=== PATIENT | male | born 1985 | race Caucasian/White ===

== ENCOUNTER 2016-11-13 00:15 | Emergency (ER) | payer SELFPAY ==
[~2016-11-13] VITALS: Ht 177.8 cm; Wt 62.0 kg
[~2016-11-13 00:15] MED LIST: IBUP800T23 PO
[2016-11-13 00:18] VITALS: BP 136/87; PULSE 79; RESP 20; TEMP 98.1; O2SAT 97
[2016-11-13] MEDS ORDERED: METH40TA PO (00:23)
[2016-11-13] MEDS ORDERED: ANXIETY (00:23)
[2016-11-13 00:35] VITALS: O2SAT 98
[2016-11-13] MEDS ORDERED: SODIUM CHLOR 0.9% 1000 ML INJ 1,000 ML IV ONE (00:45)
[2016-11-13 00:57] LABS: AUTOMATED NEUTROPHIL # 3.4 TH/MM3 (1.8-7.7); BASOPHIL % 0.4 % (0.0-2.0); HEMATOCRIT 36.5 % (39.0-51.0); HEMO FLAGS DIFF FINAL; LYMPH % 35.4 % (9.0-44.0); LYMPHOCYTE # 2.2 TH/MM3 (1.0-4.8); MEAN CELL VOLUME 84.2 FL (80.0-100.0); MEAN CORPUSCULAR HEMOGLOBIN 28.9 PG (27.0-34.0); MEAN CORPUSCULAR HGB CONC 34.3 % (32.0-36.0); MONO % 9.1 % (0.0-8.0); NEUT % 55.1 % (16.0-70.0); PLATELET COUNT 210 TH/MM3 (150-450); RED BLOOD COUNT 4.34 MIL/MM3 (4.50-5.90); RED CELL DISTRIBUTION WIDTH 12.3 % (11.6-17.2); WHITE BLOOD COUNT 6.2 TH/MM3 (4.0-11.0)
[2016-11-13 01:14] LABS: ALT (GPT) 32 U/L (12-78); ANION GAP 8 MEQ/L (5-15); AST (GOT) 19 U/L (15-37); BICARBONATE 28.2 MEQ/L (21.0-32.0); BLOOD UREA NITROGEN 9 MG/DL (7-18); CHLORIDE 103 MEQ/L (98-107); GLOMERULAR FILTRATION RATE 104 ML/MIN (>89); POTASSIUM 3.6 MEQ/L (3.5-5.1); SODIUM (NA) 139 MEQ/L (136-145)
[2016-11-13 01:21] LABS: BLOOD, URINE NEG (NEG); COMMENT (UR) CULT NOT INDICATED; CULTURE IF INDICATED CULT NOT INDICATED; GLUCOSE,URINE NEG (NEG); KETONE, URINE NEG (NEG); MUCUS URINE FEW /lpf (OCC); NITRITE,URINE NEG (NEG); URINE COLOR YELLOW (YELLW/STRAW)
[2016-11-13 01:24] LABS: ALKALINE PHOSPHATASE 55 U/L (45-117); TOTAL BILIRUBIN ADULT 0.3 MG/DL (0.2-1.0)
[2016-11-13 01:26] LABS: AMPHETAMINE, URINE NEG (NEG); BARBITURATES, URINE NEG (NEG); COCAINE, URINE NEG (NEG)
--- NOTE | 2016-11-13 01:26 | RADRPT ---
EXAM DATE/TIME: 11/13/2016 00:49 [facility] COMPARISON: No previous studies available for comparison. INDICATIONS : Chest pain. MEDICAL HISTORY : None. SURGICAL HISTORY : None. ENCOUNTER: Initial ACUITY: 1 day PAIN SCORE: 0/10 LOCATION: Bilateral chest FINDINGS: A single view of the chest demonstrates the lungs to be symmetrically aerated without evidence of mas s, infiltrate or effusion. The cardiomediastinal contours are unremarkable. Osseous structures are intact. CONCLUSION: No acute disease. Oscar Cobos MD on November 13, 2016 at 1:24 Board Certified Radiologist. This report was verified electronically.
[2016-11-13] MEDS ORDERED: VIST25CA PO (01:43)
--- NOTE | 2016-11-13 02:04 | PD ---
HPI Chief Complaint: Anxiety Time Seen by Provider: 00:32 Travel History International Travel<30 days: No Contact w/Intl Traveler<30days: No Traveled to known affect area: No History of Present Illness HPI The patient is a 31 year old male who presents to the [facility] emergency department with a history of anxiety that he reports is been difficult to control over the last 3 days. He reports that he's been checking his blood pressure and it has been elevated. He reports that he feels a sense of doom like he is pointing to . He reports that he has a sensation of heart palpitations and shortness of breath with hyperventilating. The patient reports that he is intermittently been suffering with anxiety since trying to wean himself off of methadone. He reports that he's been on methadone related to a history of opiate abuse in the past. He reports that since August he has been attempting to intermittently take himself off of it. He reports that he only took 20 mg yesterday, however today he did get a new prescription. When the anxiety became worse again this evening he took a total of 120mg in order to try to control his symptoms. He reports that the symptoms have improved since arriving in the emergency department. The patient came by ambulance services. The patient reports that he has found an inpatient treatment center in [place] which he plans to follow-up with this week. The patient reports that his physician gave him a prescription for clonidine for the symptoms of anxiety. He reports that he took a half a tablet of 0.1 mg tablet last night, however it did not help. The patient congestion, neck pain, chest pain, shortness of breath, abdominal pain, vomiting, diarrhea, urinary symptoms, or neurologic symptoms. [facility] Past Medical History Narrative Medical The patient's past medical history is significant for opiate abuse, history of kidney stones, history of left shoulder dislocation. Genitourinary: Yes (UTI'S) Musculoskeletal: Yes (dislocated shoulder) Influenza Vaccination: No Past Surgical History Narrative Surgical The patient's past surgical history is significant for tonsil and adenoidectomy , tympanostomy tube placement as a child. Tonsillectomy: Yes Social History Alcohol Use: No Tobacco Use: No Substance Use: Yes (MARIJUANA) Allergies-Medications (Allergen,Severity, Reaction): Coded Allergies: No Known Allergies (Verified , 11/13/16) Reported Meds & Prescriptions Reported Meds & Active Scripts Active Vistaril (Hydroxyzine Pamoate) 25 Mg Cap 25 Mg PO TID PRN Reported [Anxiety] Methadone (Methadone HCl) 40 Mg Tab 50 Mg PO DAILY Review of Systems Except as stated in HPI: all other systems reviewed are Neg General / Constitutional: No: Fever Eyes: No: Visual changes HENT: No: Headaches Cardiovascular: Positive: Palpitations, No: Chest Pain or Discomfort Respiratory: Positive: Shortness of Breath Gastrointestinal: No: Nausea, Vomiting, Diarrhea, Abdominal Pain Genitourinary: No: Dysuria Musculoskeletal: No: Pain Skin: No Rash Neurologic: No: Weakness Psychiatric: No: Depression Endocrine: No: Polydipsia Hematologic/Lymphatic: No: Easy Bruising Physical Exam Narrative General: The patient is a well-developed well-nourished male, slightly anxious appearing on arrival. Head and Neck exam: Head is normocephalic atraumatic. Eyes: EOMI, pupils are equal round and reactive to light. Nose: Midline septum with pink mucous membranes Mouth: Dentition unremarkable. Moist mucus membranes. Posterior oropharynx is not erythematous. No tonsillar hypertrophy. Uvula midline. Airway patent. Neck: No palpable lymphadenopathy. No nuchal rigidity. No thyromegaly. Cardiovascular: Regular rate and rhythm without murmurs, gallops, or rubs. No pulse deficit to the extremities and simultaneous auscultation and palpation of his radial artery. Lungs: Clear to auscultation bilaterally. No wheezes, rhonchi, or rales. Abdomen: Soft, without tenderness to palpation in all 4 quadrants of the abdomen. No guarding, rebound, or rigidity. Normal bowel sounds are audible. No tenderness on palpation of McBurney's point. Extremities: No clubbing, cyanosis, or edema. 2+ pulses in all 4 extremities. No calf tenderness on palpation. Back: No spinous process tenderness to palpation. No costovertebral angle tenderness to palpation. Neurologic Exam: Grossly nonfocal. Skin Exam: No rash noted. Intact skin that is warm and dry. Data Data Last Documented VS Vital Signs Date Time Temp Pulse Resp B/P Pulse Ox O2 Delivery O2 Flow Rate FiO2 11/13/16 00:35 98 Room Air 11/13/16 00:18 98.1 79 20 136/87 Orders Electrocardiogram (11/13/16 00:32) Complete Blood Count With Diff (11/13/16 00:32) Comprehensive Metabolic Panel (11/13/16 00:32) Lipase (11/13/16:32) Urinalysis - C+S If Indicated (11/13/16 00:32) Magnesium (Mg) (11/13/16 00:32) Thyroid Stimulating Hormone (11/13/16:32) Chest, Single Ap (11/13/16:32) Iv Access Insert/Monitor (11/13/16:32) Ecg Monitoring (11/13/16:32) Oximetry (11/13/16:32) Drug Screen, Random Urine (11/13/16:32) Alcohol (Ethanol) (11/13/16:32) Sodium Chlor 0.9% 1000 Ml Inj (Ns 1000 M (11/13/16 00:45) Labs Laboratory Tests Test 11/13/16 11/13/16 00:50 01:07 White Blood Count 6.2 TH/MM3 Red Blood Count 4.34 MIL/MM3 Hemoglobin 12.5 GM/DL Hematocrit 36.5 % Mean Corpuscular Volume 84.2 FL Mean Corpuscular Hemoglobin 28.9 PG Mean Corpuscular Hemoglobin 34.3 % Concent Red Cell Distribution Width 12.3 % Platelet Count 210 TH/MM3 Mean Platelet Volume 8.2 FL Neutrophils (%) (Auto) 55.1 % Lymphocytes (%) (Auto) 35.4 % Monocytes (%) (Auto) 9.1 % Eosinophils (%) (Auto) 0.0 % Basophils (%) (Auto) 0.4 % Neutrophils # (Auto) 3.4 TH/MM3 Lymphocytes # (Auto) 2.2 TH/MM3 Monocytes # (Auto) 0.6 TH/MM3 Eosinophils # (Auto) 0.0 TH/MM3 Basophils # (Auto) 0.0 TH/MM3 CBC Comment DIFF FINAL Differential Comment Sodium Level 139 MEQ/L Potassium Level 3.6 MEQ/L Chloride Level 103 MEQ/L Carbon Dioxide Level 28.2 MEQ/L Anion Gap 8 MEQ/L Blood Urea Nitrogen 9 MG/DL Creatinine 0.86 MG/DL Estimat Glomerular Filtration 104 ML/MIN Rate Random Glucose 86 MG/DL Calcium Level 9.0 MG/DL Magnesium Level 2.0 MG/DL Total Bilirubin 0.3 MG/DL Aspartate Amino Transf 19 U/L (AST/SGOT) Alanine Aminotransferase 32 U/L (ALT/SGPT) Alkaline Phosphatase 55 U/L Total Protein 7.9 GM/DL Albumin 4.4 GM/DL Lipase 51 U/L Thyroid Stimulating Hormone 6.740 uIU/ML 3rd Gen Ethyl Alcohol Level LESS THAN 3 MG/DL Urine Color YELLOW Urine Turbidity CLEAR Urine pH 6.0 Urine Specific [place] 1.009 Urine Protein NEG mg/dL Urine Glucose (UA) NEG mg/dL Urine Ketones NEG mg/dL Urine Occult Blood NEG Urine Nitrite NEG Urine Bilirubin NEG Urine Urobilinogen LESS THAN 2.0 MG/DL Urine Leukocyte Esterase NEG Urine WBC 2 /hpf Urine Mucus FEW /lpf Microscopic Urinalysis Comment CULT NOT INDICATED Urine Opiates Screen NEG Urine Barbiturates Screen NEG Urine Amphetamines Screen NEG Urine Benzodiazepines Screen NEG Urine Cocaine Screen NEG Urine Cannabinoids Screen POS MDM Medical Decision Making Medical Screen Exam Complete: Yes Emergency Medical Condition: Yes Medical Record Reviewed: Yes Differential Diagnosis Anxiety disorder, versus withdrawal syndrome, versus hyperthyroid disorder Narrative Course During the course of the patients emergency department visit, the patients history, examination, and differential diagnosis were reviewed with the patient. The patient had IV access obtained and blood work sent for analysis. The patient was placed on a registered nurse cardiac telemetry with oximetry and blood pressure monitoring. An EKG was done on arrival. The patient's EKG shows a sinus rhythm heart rate is 73, no acute ST segment elevation or depression. The patient was provided normal saline 1 L IV fluid bolus. The patients laboratory studies were reviewed and remarkable for a CBC that shows a white count of 6.2, hemoglobin 12.5, platelets 210 with 9.1 monocytes. CMP is remarkable for a lipase of 51, TSH is 6.74. Urinalysis is unremarkable, urinalysis is positive for cannabinoids, alcohol level less than 3. Radiology studies were reviewed and remarkable for a chest x-ray with no acute abnormality. The patient will be given an outpatient lab slip to have his thyroid function testing done in its entirety in one week including a TSH, free T3, T4 The patient is resting comfortably and feels better, is alert and in no distress. The patients results and examination findings were discussed with the patient. The repeat examination is unremarkable and benign. The history, exam, diagnostic testing, and current condition do not suggest any significant pathology to warrant further testing, continued ED treatment, admission, or surgical evaluation at this point. The vital signs have been stable. The patient does not have uncontrollable pain, intractable vomiting, or other significant symptoms. The patient's condition is stable and appropriate for discharge. The patient will pursue further outpatient evaluation with a primary care physician or other designated or consulting physician as indicated in the discharge instructions. The patient expressed understanding and was agreeable with this plan. Diagnosis Primary Impression: Palpitations Additional Impressions: Withdrawal syndrome Qualified Code: F11.23 - Opioid withdrawal Elevated TSH Referrals: Peter Kingston MD 1 week Patient Instructions: General Instructions, Hypothyroidism (ED), Opioid Withdrawal (ED), Palpitations (ED) Additional Instructions: The patient is instructed to have his TSH and free T3-T4 checked in one week. Med/Other Pt SpecificInfo: Prescription(s) given Scripts Hydroxyzine Pamoate (Vistaril)25 Mg Cap25 Mg PO TID PRN (ANXIETY AND/OR INSOMNIA ) #12 CAP Ref 0 Prov:Tatiana Caban MD 11/13/16 Disposition: 01 DISCHARGE HOME Condition: Stable Tatiana Caban MD Nov 13, 2016 02:04
--- NOTE | 2016-11-13 20:21 | EKG ---
Date Performed: 11/13/2016 Time Performed: 00:58:19 PTAGE: 31 years EKG: Sinus rhythm NORMAL ECG NO PREVIOUS TRACING DOCTOR: Caryl Jaimes Interpretating Date/Time 11/13/2016 20:19:56
== END 2016-11-13 02:39 | disposition home or self-care (01) ==
LOC: NEPE 00:15
DX: F11.23 Opioid dependence with withdrawal (principal); R00.2 Palpitations; R06.02 Shortness of breath; Z79.899 Other long term (current) drug therapy
CPT/HCPCS: 71010; 80053; 80307; 81001; 83690; 83735; 84443; 85025; 93005; 96360; 99285; J7030

== ENCOUNTER 2016-11-14 09:24 | Emergency (ER) | payer SELFPAY ==
[~2016-11-14] VITALS: Ht 177.8 cm; Wt 62.0 kg
[~2016-11-14 09:24] MED LIST changes: +ANXIETY; -IBUP800T23 PO; +METH40TA PO; +VIST25CA PO
[2016-11-14 09:27] VITALS: BP 141/94; PULSE 102; RESP 20; TEMP 98.1; O2SAT 97
[2016-11-14 09:57] VITALS: O2SAT 99
[2016-11-14 10:00] VITALS: BP 150/91; PULSE 86; RESP 22; O2SAT 97
[2016-11-14] MEDS ORDERED: SODIUM CHLOR 0.9% 1000 ML INJ 1,000 ML IV ONE (10:00)
[2016-11-14] MEDS ORDERED: SODIUM CHLORIDE 0.9% FLUSH 10 ML FLUSH IVF PRN (10:00)
[2016-11-14] MEDS ORDERED: LORazepam 2 MG/ML VIAL IV PUSH ONE (10:00)
[2016-11-14] MEDS ORDERED: cloNIDine HCL 0.1 MG TAB PO ONE (10:00)
--- NOTE | 2016-11-14 10:08 | PD ---
HPI Chief Complaint: Chest Pain Time Seen by Provider: 09:37 Travel History International Travel<30 days: No Contact w/Intl Traveler<30days: No Traveled to known affect area: No History of Present Illness HPI Patient is a 31-year-old male who presents to emergency room with complaints of anxiety reaction as well as opiate withdrawal. Patient reports that he has been on methadone for the past 2 years, reports that over the past 2 weeks, he has been trying to detox himself off of the methadone. Patient reports that he is concerned that he detoxed himself too fast, reports that he has been very anxious and has been panicky and has been having palpitations with his symptoms. Patient reports that he was seen in the ER a few days ago for similar symptoms, he did call his doctor who prescribes his methadone and got another prescription for the methadone as he was not ready to completely be off this medication. Patient reports that over the past 2 days, he has doubled his dose of methadone because the weaning dose was "too low" and "I can't take the withdrawl symptoms." Patient reports "I'm just really anxious" and just wants to be evaluated. Denies use of recent drugs/alcohol. PFSH Past Medical History Genitourinary: Yes (UTI'S) Musculoskeletal: Yes (dislocated shoulder) Past Surgical History Tonsillectomy: Yes Social History Alcohol Use: No Tobacco Use: No Substance Use: Yes (MARIJUANA) Allergies-Medications (Allergen,Severity, Reaction): Coded Allergies: No Known Allergies (Verified , 11/14/16) Reported Meds & Prescriptions Reported Meds & Active Scripts Active Vistaril (Hydroxyzine Pamoate) 25 Mg Cap 25 Mg PO TID PRN Reported [Anxiety] Methadone (Methadone HCl) 40 Mg Tab 50 Mg PO DAILY Review of Systems General / Constitutional: No: Fever Eyes: No: Visual changes HENT: No: Headaches Cardiovascular: Positive: Palpitations, No: Chest Pain or Discomfort Respiratory: No: Shortness of Breath Gastrointestinal: No: Abdominal Pain Genitourinary: No: Dysuria Musculoskeletal: No: Pain Skin: No Rash Neurologic: No: Weakness Psychiatric: Positive: Anxiety, No: Depression Endocrine: No: Polydipsia Hematologic/Lymphatic: No: Easy Bruising Physical Exam Narrative GENERAL: No acute distress, nontoxic SKIN: Focused skin assessment warm/dry. HEAD: Atraumatic. Normocephalic. EYES: Pupils equal and round. No scleral icterus. No injection or drainage. ENT: No nasal bleeding or discharge. Mucous membranes pink and moist. NECK: Trachea midline. No JVD. CARDIOVASCULAR: Regular rate and rhythm. No murmur appreciated. RESPIRATORY: No accessory muscle use. Clear to auscultation. Breath sounds equal bilaterally. GASTROINTESTINAL: Abdomen soft, non-tender, nondistended. Hepatic and splenic margins not palpable. MUSCULOSKELETAL: No obvious deformities. No clubbing. No cyanosis. No edema. NEUROLOGICAL: Awake and alert. No obvious cranial nerve deficits. Motor grossly within normal limits. Normal speech. PSYCHIATRIC: Patient anxious on exam Data Data Last Documented VS Vital Signs Date Time Temp Pulse Resp B/P Pulse Ox O2 Delivery O2 Flow Rate FiO2 11/14/16 09:57 99 Room Air 11/14/16 09:41 105 20 11/14/16 09:27 98.1 141/94 Orders Basic Metabolic Panel (Bmp) (11/14/16 09:47) Complete Blood Count With Diff (11/14/16 09:47) Ecg Monitoring (11/14/16 09:47) Iv Access Insert/Monitor (11/14/16 09:47) Oximetry (11/14/16 09:47) Sodium Chloride 0.9% Flush (Ns Flush) (11/14/16 10:00) Drug Screen, Random Urine (11/14/16 09:47) Sodium Chlor 0.9% 1000 Ml Inj (Ns 1000 M (11/14/16 10:00) Clonidine (Catapres) (11/14/16 10:00) Lorazepam Inj (Ativan Inj) (11/14/16 10:00) Chest, Single Ap (11/14/16 09:53) Electrocardiogram (11/14/16 09:45) Labs Laboratory Tests Test 11/14/16 10:00 White Blood Count 5.0 TH/MM3 Red Blood Count 4.56 MIL/MM3 Hemoglobin 13.2 GM/DL Hematocrit 38.6 % Mean Corpuscular Volume 84.8 FL Mean Corpuscular Hemoglobin 29.0 PG Mean Corpuscular Hemoglobin 34.2 % Concent Red Cell Distribution Width 12.7 % Platelet Count 219 TH/MM3 Mean Platelet Volume 8.7 FL Neutrophils (%) (Auto) 57.3 % Lymphocytes (%) (Auto) 33.7 % Monocytes (%) (Auto) 8.1 % Eosinophils (%) (Auto) 0.4 % Basophils (%) (Auto) 0.5 % Neutrophils # (Auto) 2.9 TH/MM3 Lymphocytes # (Auto) 1.7 TH/MM3 Monocytes # (Auto) 0.4 TH/MM3 Eosinophils # (Auto) 0.0 TH/MM3 Basophils # (Auto) 0.0 TH/MM3 CBC Comment DIFF FINAL Differential Comment Sodium Level 141 MEQ/L Potassium Level 3.6 MEQ/L Chloride Level 106 MEQ/L Carbon Dioxide Level 28.5 MEQ/L Anion Gap 7 MEQ/L Blood Urea Nitrogen 10 MG/DL Creatinine 0.92 MG/DL Estimat Glomerular Filtration 97 ML/MIN Rate Random Glucose 101 MG/DL Calcium Level 8.7 MG/DL Urine Opiates Screen NEG Urine Barbiturates Screen NEG Urine Amphetamines Screen NEG Urine Benzodiazepines Screen NEG Urine Cocaine Screen NEG Urine Cannabinoids Screen POS MDM Medical Decision Making Medical Screen Exam Complete: Yes Emergency Medical Condition: Yes Interpretation(s) EKG at 0945: NSR at 92bpm, qt/qtc: 378/428, no acute st or t wave changes Differential Diagnosis Anxiety reaction, opiate withdrawal, dehydration, electrolyte abnormality Narrative Course Patient is a 31-year-old male who presents to emergency room with complaints of anxiety attack as well as opiate withdrawal. Patient has been attempting to detox himself from methadone, reports that he has had increased withdrawal symptoms from this. Patient did call his physician and did have his prescription methadone renewed, reports that he is very anxious about decreasing his dose of methadone. Patient reports that he has been having palpitations, dry mouth, reports that he feels dehydrated and dizzy. Patient here for evaluation of withdrawal symptoms as well as for anxiety. Patient reports that he was given a prescription for Klonopin by his physician, patient reports that he did not fill his prescription as he was fearful for the side effects of this medication Overall, patient very anxious on exam. Plan to obtain EKG, will place patient on a mental health clinician. Labs as well as x-ray chest ordered. Will treat patient for opiate withdrawal as well as anxiety. Vital Signs Date Time Temp Pulse Resp B/P Pulse Ox O2 Delivery O2 Flow Rate FiO2 11/14/16 09:57 99 Room Air 11/14/16 09:41 105 20 99 Room Air 11/14/16 09:27 98.1 102 20 141/94 97 Room Air Laboratory Tests Test 11/14/16 10:00 White Blood Count 5.0 TH/MM3 (4.0-11.0) Red Blood Count 4.56 MIL/MM3 (4.50-5.90) Hemoglobin 13.2 GM/DL (13.0-17.0) Hematocrit 38.6 % (39.0-51.0) Mean Corpuscular Volume 84.8 FL (80.0-100.0) Mean Corpuscular Hemoglobin 29.0 PG (27.0-34.0) Mean Corpuscular Hemoglobin 34.2 % Concent (32.0-36.0) Red Cell Distribution Width 12.7 % (11.6-17.2) Platelet Count 219 TH/MM3 (150-450) Mean Platelet Volume 8.7 FL (7.0-11.0) Neutrophils (%) (Auto) 57.3 % (16.0-70.0) Lymphocytes (%) (Auto) 33.7 % (9.0-44.0) Monocytes (%) (Auto) 8.1 % (0.0-8.0) Eosinophils (%) (Auto) 0.4 % (0.0-4.0) Basophils (%) (Auto) 0.5 % (0.0-2.0) Neutrophils # (Auto) 2.9 TH/MM3 (1.8-7.7) Lymphocytes # (Auto) 1.7 TH/MM3 (1.0-4.8) Monocytes # (Auto) 0.4 TH/MM3 (0-0.9) Eosinophils # (Auto) 0.0 TH/MM3 (0-0.4) Basophils # (Auto) 0.0 TH/MM3 (0-0.2) CBC Comment DIFF FINAL Differential Comment Sodium Level 141 MEQ/L (136-145) Potassium Level 3.6 MEQ/L (3.5-5.1) Chloride Level 106 MEQ/L (98-107) Carbon Dioxide Level 28.5 MEQ/L (21.0-32.0) Anion Gap 7 MEQ/L (5-15) Blood Urea Nitrogen 10 MG/DL (7-18) Creatinine 0.92 MG/DL (0.60-1.30) Estimat Glomerular Filtration 97 ML/MIN (>89) Rate Random Glucose 101 MG/DL (74-106) Calcium Level 8.7 MG/DL (8.5-10.1) Urine Opiates Screen NEG (NEG) Urine Barbiturates Screen NEG (NEG) Urine Amphetamines Screen NEG (NEG) Urine Benzodiazepines Screen NEG (NEG) Urine Cocaine Screen NEG (NEG) Urine Cannabinoids Screen POS (NEG) X-ray of the chest with no acute disease Patient reevaluated, patient reports that he is feeling much better at this time. Patient reports complete resolution of symptoms. Patient will follow-up with his primary care doctor and return to emergency room as needed. Patient will also follow-up with his elevated TSH which was found on lab work from last visit. Signs and symptoms of when to return to the emergency room was reviewed with patient in detail. Diagnosis Primary Impression: Anxiety Patient Instructions: General Instructions Additional Instructions: Please follow-up with your primary care doctor return to emergency room as needed Disposition: 01 DISCHARGE HOME Condition: Stable Tiera Bethea DO Nov 14, 2016 10:08
--- NOTE | 2016-11-14 10:16 | RADRPT ---
EXAM DATE/TIME: 11/14/2016 09:54 [facility] COMPARISON: CHEST SINGLE AP, November 13, 2016, 0:49. INDICATIONS : Shortness of breath. Tachycardia. Anxiety. MEDICAL HISTORY : None. SURGICAL HISTORY : None. ENCOUNTER: Subsequent ACUITY: 1 day PAIN SCORE: 1/10 LOCATION: Bilateral chest FINDINGS: A single view of the chest demonstrates the lungs to be symmetrically aerated without evidence of mas s, infiltrate or effusion. The lungs are hyperaerated bilaterally. The cardiomediastinal contours ar e unremarkable. Osseous structures are intact. CONCLUSION: Hyperaeration. Clear lungs. Rene Venegas Jr., MD on November 14, 2016 at 10:13 Board Certified Radiologist. This report was verified electronically.
[2016-11-14 10:23] LABS: AUTOMATED NEUTROPHIL # 2.9 TH/MM3 (1.8-7.7); BASOPHIL % 0.5 % (0.0-2.0); EOSINOPHIL % 0.4 % (0.0-4.0); HEMATOCRIT 38.6 % (39.0-51.0); HEMO FLAGS DIFF FINAL; LYMPH % 33.7 % (9.0-44.0); LYMPHOCYTE # 1.7 TH/MM3 (1.0-4.8); MEAN CELL VOLUME 84.8 FL (80.0-100.0); MEAN CORPUSCULAR HGB CONC 34.2 % (32.0-36.0); MONO % 8.1 % (0.0-8.0); NEUT % 57.3 % (16.0-70.0); PLATELET COUNT 219 TH/MM3 (150-450); RED BLOOD COUNT 4.56 MIL/MM3 (4.50-5.90); RED CELL DISTRIBUTION WIDTH 12.7 % (11.6-17.2)
[2016-11-14 10:30] LABS: AMPHETAMINE, URINE NEG (NEG); BARBITURATES, URINE NEG (NEG); COCAINE, URINE NEG (NEG)
[2016-11-14 10:41] LABS: BICARBONATE 28.5 MEQ/L (21.0-32.0); POTASSIUM 3.6 MEQ/L (3.5-5.1)
[2016-11-14 12:22] VITALS: BP 131/88
--- NOTE | 2016-11-14 13:36 | EKG ---
Date Performed: 11/14/2016 Time Performed: 09:45:34 PTAGE: 31 years EKG: Sinus rhythm NORMAL ECG INTERPRETATION BASED ON A DEFAULT AGE OF 41 YEARS PREVIOUS TRACING : 11/13/2016 00.58 Compared to prior tracing no significant change DOCTOR: Trey Uribe Interpretating Date/Time 11/14/2016 13:34:23
== END 2016-11-14 12:23 | disposition home or self-care (01) ==
LOC: NEPC 09:24
DX: F41.9 Anxiety disorder, unspecified (principal); Z79.899 Other long term (current) drug therapy
CPT/HCPCS: 71010; 80048; 80307; 85025; 93005; 96361; 96374; 99284; J2060; J7030